=== PATIENT | female | born 1990 | race Two or more races ===

== ENCOUNTER 2025-08-14 13:14 | Emergency (ER) | payer SELFPAY ==
[~2025-08-14] VITALS: Ht 157.5 cm; Wt 140.6 kg
[2025-08-14 13:33] VITALS: BP 125/69; TEMP 98.1
[2025-08-14] MEDS ORDERED: PRED20TA PO (14:13)
[2025-08-14] MEDS ORDERED: ALBU18HF2 INH (14:13)
[2025-08-14] MEDS ORDERED: BENZ-13 PO (14:13)
[2025-08-14 14:18] VITALS: O2SAT 98
== END 2025-08-14 14:19 | disposition home or self-care (01) ==
LOC: ER 13:22
DX: J20.9 Acute bronchitis, unspecified (principal); J06.9 Acute upper respiratory infection, unspecified; Z79.52 Long term (current) use of systemic steroids